=== PATIENT | male | born 1985 | race Caucasian/White ===

== ENCOUNTER 2025-02-10 19:19 | Emergency (ER) | payer MEDICAID, OTHER ==
[~2025-02-10] VITALS: Ht 162.6 cm; Wt 70.3 kg
[2025-02-10 23:45] LABS: PLATELET COUNT (AUTO) 282 K/uL (150-450); RED BLOOD CELL COUNT(AUTO) 4.84 MIL/uL (4.5-6.0); RED CELL DISTRIBUTION WIDTH 14.3 % (11.5-15.0); WHITE BLOOD COUNT (AUTO) 7.8 K/uL (4.3-11.0)
[2025-02-10 23:48] LABS: APPEARANCE,URINE CLEAR (CLEAR); BLOOD, URINE 1+ Ery/uL (NEGATIVE); LEUKOCYTE ESTERASE ,URINE NEGATIVE (NEGATIVE); NITRITE, URINE NEGATIVE (NEGATIVE); UGLUCOSE NEGATIVE (NEGATIVE)
[2025-02-10 23:50] LABS: ADD URINE CULTURE NO; SQUAMOUS EPITHELIAL CELL,UR Rare /HPF (None Seen)
[2025-02-10 23:51] LABS: CALCIUM, SERUM 9.0 mg/dL (8.5-10.1); CREATININE 0.8 mg/dL (0.6-1.3); SODIUM SERUM 141 mmol/L (136-145); UREA NITROGEN, BLOOD 10 mg/dL (7-18)
[2025-02-10 23:57] LABS: AMPHETAMINE, URINE NEGATIVE (NEGATIVE); BARBITURATE, URINE NEGATIVE (NEGATIVE); BENZODIAZEPINE, URINE NEGATIVE (NEGATIVE); CANNABINOID, URINE NEGATIVE (NEGATIVE); COCCAINE, URINE NEGATIVE (NEGATIVE); OPIATE, URINE NEGATIVE (NEGATIVE)
[2025-02-10 23:58] LABS: ALCOHOL, BLOOD < 3 mg/dL (0-10); ASPARTATE AMINOTRANSFERASE 37 U/L (15-37); TOTAL PROTEIN, SERUM 7.9 g/dL (6.4-8.2)
[2025-02-11] MEDS ORDERED: OLANZAPINE 5 MG TABLET ONE (00:46)
[2025-02-11] MEDS: OLANZAPINE 5 MG TABLET PO ONE (00:46)
[2025-02-11 10:26] VITALS: BP 128/79; TEMP 98.2; O2SAT 99
== END 2025-02-11 10:26 | disposition home or self-care (01) ==
LOC: ER 19:25
DX: U07.1 COVID-19 (principal); R45.851 Suicidal ideations; R44.0 Auditory hallucinations; Z60.2 Problems related to living alone
CPT/HCPCS: 36415; 80048-TC; 80076-TC; 81001; 85025-TC; G0480